=== PATIENT | male | born 1975 | race Native Hawaiian/Other Pacific Islander ===

== ENCOUNTER 2020-08-16 06:13 | Observation (INO) | payer SELFPAY ==
[~2020-08-16] VITALS: Ht 175.3 cm; Wt 103.0 kg
[2020-08-16 06:54] LABS: BASO # 0.1 (0.0-0.2); BASO % 1.2 % (0.0-2.0); EOS # 0.4 (0.0-0.7); EOS % 5.5 % (0-4.0); GRAN # 3.4 (1.4-6.5); GRAN % 46.9 % (42.2-75.2); HEMATOCRIT 47.1 % (42.0-52.0); HEMOGLOBIN 16.4 g/dl (13.5-18.0); LYMPH # 2.7 (1.2-3.4); LYMPH % 37.8 % (20.0-51.0); MEAN CELL VOLUME 88 fl (80.0-100.0); MEAN CORPUSCULAR HEMOGLOBIN 31 pg (27.0-31.0); MEAN CORPUSCULAR HGB CONC 35 g/dl (33.0-37.0); MEAN PLATELET VOLUME 8.9 fl (7.4-10.4); MONO # 0.6 (0.1-0.6); MONO % 8.3 % (1.7-9.3); PLATELET COUNT 317 K/mm3 (130-400); RED BLOOD COUNT 5.35 M/mm3 (4.20-5.60); REDCELL DISTRIBUTION WIDTH-CV 12.5 % (11.5-14.5)
[2020-08-16 07:04] LABS: ALANINE AMINOTRANSFERASE 98 U/L (4-49); ALBUMIN 4.5 gm/dL (3.5-5.0); ALKALINE PHOSPHATASE 93 U/L (50-136); ANION GAP 7 mmol/L (7-16); AST,SGOT 61 U/L (15-37); BILIRUBIN,TOTAL 0.4 mg/dL (0.0-1.0); BLOOD UREA NITROGEN 20 mg/dL (9-20); CALCIUM 8.8 mg/dL (8.4-10.2); CARBON DIOXIDE 29 mmol/L (22-30); CHLORIDE 100 mmol/L (98-107); CREATININE, serum 0.86 (0.66-1.25); GLUCOSE 92 mg/dL (74-106); LIPASE 69 U/L (23-300); POTASSIUM 3.7 mmol/L (3.4-5.0); SODIUM 136 mmol/L (137-145); TOTAL PROTEIN 8.1 gm/dL (6.4-8.2)
[2020-08-16 07:18] LABS: TROPONIN-I < 0.012 ng/mL (0.000-0.035)
[2020-08-16 08:05] LABS: INR 1.1 (0.8-3.0); PROTHROMBIN TIME 12.1 SECONDS (9.7-12.8)
[2020-08-16 08:08] LABS: PARTIAL THROMBOPLASTIN TIME 32.5 SECONDS (26.0-37.0)
[2020-08-16 08:44] LABS: COLLECTION METHOD CLEAN CATCH
[2020-08-16 08:49] LABS: PH 5 (5-8); SQUAMOUS EPITHELIAL None Seen /hpf; URINE APPEARANCE Clear; URINE BACTERIA None Seen /hpf; URINE BILIRUBIN Negative (NEGATIVE); URINE BLOOD Negative (NEGATIVE); URINE COLOR Straw; URINE GLUCOSE Negative (NEGATIVE); URINE KETONE Negative (NEGATIVE); URINE LEUKOCYTE ESTERASE Negative (NEGATIVE); URINE NITRATE Negative (NEGATIVE); URINE PROTEIN(semi-quant) Negative (NEGATIVE); URINE RBC None Seen /hpf; URINE UROBILINOGEN Negative (NEGATIVE)
[2020-08-16] MEDS ORDERED: LASIX 40MG TABL40 MG PO (10:47)
[2020-08-16] MEDS ORDERED: LOPRESSOR 225 MG/TAB PO (10:48)
[2020-08-16] MEDS ORDERED: CARDIZEM CD 12120 MG PO (10:50)
[2020-08-16] MEDS ORDERED: ZESTRIL2.5 MG PO (10:51)
[2020-08-16] MEDS ORDERED: ALDACTONE 25MG25 M1 PO (10:51)
[2020-08-16] MEDS ORDERED: PLAVIX 75MG TAB75 MG PO (10:52)
[2020-08-16] MEDS ORDERED: ZYLOPRIM 100MG100 MG PO (10:53)
[2020-08-16] MEDS ORDERED: LOPID 600M600 MG/TAB PO (10:53)
[2020-08-16] MEDS ORDERED: THE MEDICINE S200 M2 PO (10:54)
[2020-08-16 11:07] VITALS: BP 109/73; PULSE 60; TEMP 97.8
[2020-08-16] MEDS ORDERED: TOPROL XL 25MG25 MG PO (13:49)
[2020-08-16] MEDS ORDERED: ELIQUIS 5MG PO (13:53)
[2020-08-16] MEDS ORDERED: ASPIRIN E.C. 8181 MG PO (14:05)
[2020-08-16] MEDS ORDERED: NITROSTAT0.4 MG/TAB SL (14:05)
[2020-08-16] MEDS ORDERED: MOTRIN 200200 MG/TAB PO (16:07)
[2020-08-16] MEDS ORDERED: PRILOTC PO (16:07)
--- NOTE | 2020-08-16 17:17 | NUR ---
Discharge paperwork reviewed with the patient and daughter. Both verbalized an understanding to follow doctors orders. IV removed, tip intact, patient tolerated well. Gauze and coban covering. No futher needs expressed from the patient. Nurse ambulated with the patient to the ER entrance.
== END 2020-08-16 17:25 | disposition home or self-care (01) ==
LOC: COL.ER 06:13 → MEDICAL 09:01
PROVIDERS: Emergency Medicine; ADMIT Internal Medicine
DX: I42.0 Dilated cardiomyopathy (principal); E78.5 Hyperlipidemia, unspecified; I11.0 Hypertensive heart disease with heart failure; I48.20 Chronic atrial fibrillation, unspecified; I38 Endocarditis, valve unspecified; I50.22 Chronic systolic (congestive) heart failure; I27.20 Pulmonary hypertension, unspecified; Z79.899 Other long term (current) drug therapy; Z79.02 Long term (current) use of antithrombotics/antiplatelets; Z20.822 Contact with and (suspected) exposure to COVID-19
CPT/HCPCS: G0378; J1885

== ENCOUNTER 2020-09-17 08:48 | Day surgery (SDC) | payer SELFPAY ==
[2020-09-17] VITALS (15 sets, daily range): BP systolic 100–133; BP diastolic 66–95; PULSE 71–146; TEMP 97.8
[~2020-09-17] VITALS: Ht 175.3 cm; Wt 104.3 kg
[~2020-09-17 08:48] MED LIST: ALDACTONE 25MG25 M1 PO; ASPIRIN E.C. 8181 MG PO; CARDIZEM CD 12120 MG PO; ELIQUIS 5MG PO; LASIX 40MG TABL40 MG PO; LOPID 600M600 MG/TAB PO; LOPRESSOR 225 MG/TAB PO; MOTRIN 200200 MG/TAB PO; NITROSTAT0.4 MG/TAB SL; PLAVIX 75MG TAB75 MG PO; PRILOTC PO; THE MEDICINE S200 M2 PO; TOPROL XL 25MG25 MG PO; ZESTRIL2.5 MG PO; ZYLOPRIM 100MG100 MG PO
[2020-09-17 09:31] LABS: HEMATOCRIT 46.1 % (42.0-52.0); MEAN CELL VOLUME 87 fl (80.0-100.0); MEAN CORPUSCULAR HEMOGLOBIN 30 pg (27.0-31.0); MEAN CORPUSCULAR HGB CONC 35 g/dl (33.0-37.0); MEAN PLATELET VOLUME 8.9 fl (7.4-10.4); PLATELET COUNT 294 K/mm3 (130-400); RED BLOOD COUNT 5.29 M/mm3 (4.20-5.60); REDCELL DISTRIBUTION WIDTH-CV 12.8 % (11.5-14.5)
[2020-09-17 09:42] LABS: CALCIUM 9.3 mg/dL (8.4-10.2); CREATININE, serum 0.84 (0.66-1.25); POTASSIUM 3.8 mmol/L (3.4-5.0)
[2020-09-17 09:44] LABS: INR 1.1 (0.8-3.0); PROTHROMBIN TIME 12.4 SECONDS (9.7-12.8)
[2020-09-17 09:47] LABS: PARTIAL THROMBOPLASTIN TIME 30.3 SECONDS (26.0-37.0)
--- NOTE | 2020-09-17 12:33 | NUR ---
Patient to computer lab aide by bed. Report to [facility] laborer aquatic life RN. Patient arouses to voice. Continues on O5 per [employer] at 5lpm. Denies pain.
--- NOTE | 2020-09-17 12:36 | NUR ---
Post MINOR report recived from MEME José, pt was taken directly to heart cath procedure. Daughter to forestry farm laborer waiting room.
--- NOTE | 2020-09-17 12:55 | NUR ---
SEE MERGE FOR ALL MEDICATION ADMINISTRATION MEDICATION TIMES, INTRA AND POST SEDATION ASSESS,ENTS
[2020-09-17] MEDS ORDERED: ELIQUIS 5MG PO (14:07)
[2020-09-17] MEDS ORDERED: PACERONE400 MG PO (14:09)
--- NOTE | 2020-09-17 17:00 | NUR ---
Discharge instructions reviewed at length with pt and daughter. Both express understanding. Air has been removed from TR band in 2 ml increments with no bleeding or complications. Rt radial puncture site covered with 2x2 and bandaid. IV DC'd with catheter intact. Pt is steady on feet in room. Has tolerated PO without issue. Pt and daughter are escorted to OB department where pt will be visiting another daughter who is admitted there while they wait for ride from friend to arrive.
== END 2020-09-17 17:00 | disposition home or self-care (01) ==
LOC: COL.CAR 08:48
PROVIDERS: Internal Medicine Cardiovascular Disease
DX: I42.0 Dilated cardiomyopathy (principal); I48.19 Other persistent atrial fibrillation; E78.5 Hyperlipidemia, unspecified; G89.29 Other chronic pain; I27.20 Pulmonary hypertension, unspecified; I08.1 Rheumatic disorders of both mitral and tricuspid valves; I48.91 Unspecified atrial fibrillation; I50.9 Heart failure, unspecified; I11.0 Hypertensive heart disease with heart failure; Z79.82 Long term (current) use of aspirin; Z79.899 Other long term (current) drug therapy
CPT/HCPCS: C1769; C1894; J0282; J1644; J2250; J2704; J3010; Q9967

== ENCOUNTER 2020-10-03 09:24 | Day surgery (SDC) | payer SELFPAY ==
[~2020-10-03] VITALS: Ht 175.3 cm; Wt 104.9 kg
[~2020-10-03 09:24] MED LIST changes: +PACERONE400 MG PO
[2020-10-03] MEDS ORDERED: MOTRIN 200200 MG/TAB PO (09:34)
[2020-10-03] MEDS ORDERED: PACERONE400 MG PO (09:34)
[2020-10-03] MEDS ORDERED: ELIQUIS 5MG PO ×2 (09:35→10:13)
--- NOTE | 2020-10-03 10:34 | NUR ---
Procesure cancelled. Discharge instructions given.
== END 2020-10-03 10:30 | disposition home or self-care (01) ==
LOC: COL.CAR 09:24
DX: I48.0 Paroxysmal atrial fibrillation (principal); I42.0 Dilated cardiomyopathy; Z53.8 Procedure and treatment not carried out for other reasons; I34.0 Nonrheumatic mitral (valve) insufficiency; Z79.01 Long term (current) use of anticoagulants; Z79.899 Other long term (current) drug therapy
CPT/HCPCS: J2704

== ENCOUNTER 2020-12-05 13:32 | Emergency (ER) | payer OTHER ==
[~2020-12-05] VITALS: Ht 170.2 cm; Wt 107.3 kg
[2020-12-05 17:47] LABS: BASO # 0.1 (0.0-0.2); BASO % 1.3 % (0.0-2.0); EOS # 0.2 (0.0-0.7); EOS % 2.9 % (0-4.0); GRAN # 4.3 (1.4-6.5); GRAN % 54.6 % (42.2-75.2); LYMPH # 2.6 (1.2-3.4); LYMPH % 33.2 % (20.0-51.0); MEAN CELL VOLUME 88 fl (80.0-100.0); MEAN CORPUSCULAR HGB CONC 35 g/dl (33.0-37.0); MONO # 0.6 (0.1-0.6); MONO % 7.4 % (1.7-9.3); PLATELET COUNT 251 K/mm3 (130-400); RED BLOOD COUNT 5.99 M/mm3 (4.20-5.60); REDCELL DISTRIBUTION WIDTH-CV 12.8 % (11.5-14.5)
[2020-12-05 17:48] LABS: HEMATOCRIT 52.8 % (42.0-52.0); HEMOGLOBIN 18.4 g/dl (13.5-18.0); MEAN CORPUSCULAR HEMOGLOBIN 31 pg (27.0-31.0)
[2020-12-05 17:55] LABS: COLLECTION METHOD CLEAN CATCH
[2020-12-05 18:02] LABS: PH 5 (5-8); SQUAMOUS EPITHELIAL 0-2 /hpf; URINE APPEARANCE Clear; URINE BACTERIA Rare /hpf; URINE BILIRUBIN Negative (NEGATIVE); URINE BLOOD Negative (NEGATIVE); URINE COLOR Yellow; URINE GLUCOSE Negative (NEGATIVE); URINE KETONE Negative (NEGATIVE); URINE LEUKOCYTE ESTERASE Negative (NEGATIVE); URINE NITRATE Negative (NEGATIVE); URINE PROTEIN(semi-quant) Negative (NEGATIVE); URINE RBC 0-2 /hpf; URINE UROBILINOGEN Negative (NEGATIVE)
[2020-12-05 18:07] LABS: ALANINE AMINOTRANSFERASE 147 U/L (4-49); ALBUMIN 4.6 gm/dL (3.5-5.0); ALKALINE PHOSPHATASE 96 U/L (50-136); ANION GAP 9 mmol/L (7-16); AST,SGOT 73 U/L (15-37); BILIRUBIN,TOTAL 0.6 mg/dL (0.0-1.0); BLOOD UREA NITROGEN 18 mg/dL (9-20); C-REACTIVE PROTEIN 0.7 mg/dL (0.0-0.9); CALCIUM 9.3 mg/dL (8.4-10.2); CARBON DIOXIDE 24 mmol/L (22-30); CHLORIDE 103 mmol/L (98-107); CREATININE, serum 0.96 (0.66-1.25); GLUCOSE 97 mg/dL (74-106); LIPASE 56 U/L (23-300); POTASSIUM 4.4 mmol/L (3.4-5.0); SODIUM 137 mmol/L (137-145); TOTAL PROTEIN 8.6 gm/dL (6.4-8.2)
[2020-12-05 18:29] LABS: TROPONIN-I < 0.012 ng/mL (0.000-0.035)
[2020-12-05] MEDS ORDERED: NORVASC 5MG5 MG/TAB PO (19:21)
[2020-12-05 19:39] VITALS: BP 132/49; PULSE 72; TEMP 98
== END 2020-12-05 19:39 | disposition home or self-care (01) ==
LOC: COL.ER 13:32
PROVIDERS: Nurse Practitioner Primary Care
DX: R07.89 Other chest pain (principal); E78.5 Hyperlipidemia, unspecified; R94.5 Abnormal results of liver function studies; I10 Essential (primary) hypertension; I44.1 Atrioventricular block, second degree; I27.20 Pulmonary hypertension, unspecified; I11.0 Hypertensive heart disease with heart failure; I48.91 Unspecified atrial fibrillation; I50.9 Heart failure, unspecified; Z79.01 Long term (current) use of anticoagulants; Z79.899 Other long term (current) drug therapy

== ENCOUNTER 2021-03-29 00:05 | Emergency (ER) | payer OTHER ==
[~2021-03-29] VITALS: Ht 175.3 cm; Wt 107.3 kg
[~2021-03-29 00:05] MED LIST changes: +NORVASC 5MG5 MG/TAB PO
[2021-03-29 00:22] VITALS: TEMP 98.2
[2021-03-29 01:16] LABS: BASO # 0.1 K/mm3 (0.0-0.2); BASO % 1.3 % (0.0-2.0); EOS # 0.1 K/mm3 (0.0-0.7); EOS % 2.1 % (0.0-4.0); GRAN # 2.9 K/mm3 (1.4-6.5); GRAN % 46.9 % (42.2-75.2); HEMATOCRIT 50.8 % (42.0-52.0); HEMOGLOBIN 17.5 g/dl (13.5-18.0); LYMPH # 2.5 K/mm3 (1.2-3.4); LYMPH % 40.7 % (20.0-51.0); MEAN CELL VOLUME 89 fl (80.0-100.0); MEAN CORPUSCULAR HEMOGLOBIN 31 pg (27-31); MEAN CORPUSCULAR HGB CONC 34 g/dl (33.0-37.0); MEAN PLATELET VOLUME 9.4 fl (7.4-10.4); MONO # 0.5 K/mm3 (0.1-0.6); MONO % 8.5 % (1.7-9.3); PLATELET COUNT 233 K/mm3 (130-400); RED BLOOD COUNT 5.74 M/mm3 (4.20-5.60); REDCELL DISTRIBUTION WIDTH-CV 13.1 % (11.5-14.5)
[2021-03-29 01:26] LABS: ALBUMIN 4.1 gm/dL (3.5-5.0); BILIRUBIN,TOTAL 0.7 mg/dL (0.2-1.2); C-REACTIVE PROTEIN 0.22 mg/dL (0.00-0.50); CALCIUM 9.1 mg/dL (8.4-10.2); CREATININE, serum 1.22 mg/dL (0.72-1.25); POTASSIUM 3.9 mmol/L (3.5-4.5); TOTAL PROTEIN 7.9 gm/dL (6.2-8.1)
[2021-03-29 01:32] LABS: TROPONIN-I 0.01 ng/mL (0.00-0.033)
[2021-03-29 05:15] VITALS: BP 132/78; PULSE 76
== END 2021-03-29 05:15 | disposition home or self-care (01) ==
LOC: COL.ER 00:05
PROVIDERS: Nurse Practitioner Family
DX: R07.2 Precordial pain (principal); I11.0 Hypertensive heart disease with heart failure; I50.9 Heart failure, unspecified; I48.91 Unspecified atrial fibrillation; Z79.01 Long term (current) use of anticoagulants; Z79.899 Other long term (current) drug therapy